=== PATIENT | male | born 1985 | race Caucasian/White ===

== ENCOUNTER 2024-04-16 14:21 | Emergency (ER) | payer OTHER, SELFPAY ==
[2024-04-16 14:31] VITALS: BP 152/93
--- NOTE | 2024-04-16 15:23 | ED.GENMED ---
History of Present Illness
General
Chief Complaint: Musculo-Skeletal Complaint
Time Seen by Provider: 04/16/24 14:53
History of Present Illness
History of Present Illness:
39-year-old male presents to the emergency department for evaluation of nontraumatic right hip pain, intermittent over the past month but worsening in the past 1 to 2 days. Having difficulty moving the leg without assistance. Does have a history
of rheumatoid arthritis, was reportedly supposed to be taking Plaquenil but has not been compliant with this. He did take Celebrex last night without relief. Reports that he was having sex the night before pain began while lying on his right side
but denies any pain during the episode. No fevers or chills. Denies any pattern of morning stiffness. Does also relate bilateral hand stiffness during the same timeframe
Past History
Past History
ED Past Medical History: Hypercholesterolemia
ED Past Surgical History: Orthopedic
Social History
Tobacco: Non-smoker
Drug: None
Review of Systems
Review of Systems
Allergies reviewed?: Yes
All Other Systems: ROS reviewed and negative except as documented in HPI and ROS
Phy Exam
Physical Exam
Physical Exam:
GEN: Well appearing, NAD, WDWN
HEENT: Oral mucosa moist, no scleral icterus
Cardiac: Regular rate
Lung: No respiratory distress, no tachypnea
MSK: No gross deformity or injuries. Range of motion of the right hip secondary to pain, there is no pain with passive hip flexion however hip extension elicits increased pain passively. No palpable crepitus. No focal tenderness to the
trochanteric bursa
Skin: Good color, no pallor or jaundice, no rashes
Neuro: AO x3, moves all extremities freely
Psych: Calm, cooperative
Course
Orders/Labs/Results
Orders:
Orders
04/16/24 14:34
Hip, Right 2-3 Views [CR Hip - RT w/wo Pel 2-3 Vw*] Urgent
Comment:
Reason For Exam: non-traumatic pain
Include a pelvis x-ray?: Yes
04/16/24 15:21
Ketorolac [Toradol] 15 mg IV NOW STA
04/16/24 15:40
CPK [Creatine Phosphokinase] Urgent
CRP [C-Reactive Protein] Urgent
Complete Blood Count/No Diff Urgent
Comprehensive Metabolic Panel Urgent
04/16/24 17:18
Crutches-Treatment ONCE
Dexamethasone Sod Phosphate [Decadron] 10 mg IV NOW STA
HYDROmorphone [Dilaudid] 0.5 mg IV NOW STA
Abnormal Lab Results
04/16/24
15:40
Hct 37.4 L %
(39.0-52.0)
MCV 79.6 L fL
(80.0-94.0)
Glucose 105 H mg/dl
(70-99)
C-Reactive Protein 67.80 H mg/L
(0.0-10.00)
04/16/24 15:40
04/16/24 15:40
Vital Signs
Initial and Last Documented VS:
Initial Vital Signs
Temp Pulse Resp BP Pulse Ox
99.8 F 108 17 152/93 99
04/16/24 14:31 04/16/24 14:31 04/16/24 14:31 04/16/24 14:31 04/16/24 14:31
Last Documented Vital Signs
Temp Pulse Resp BP Pulse Ox
99.8 F 78 18 109/56 100
04/16/24 14:31 04/16/24 17:55 04/16/24 17:55 04/16/24 17:55 04/16/24 17:55
MDM/Problems Addressed
MDM/Problems Addressed:
I suspect his right hip pain is due to osteoarthritis however cannot discount the possibility of associated rheumatoid arthritis flareup. This is particular concerning given the elevated inflammatory markers. Will start the patient on steroid
pulse dose, recommend outpatient orthopedic follow-up
*Critical Care Note
Total Time (30-74mins, 75-104mins- exclusive of procedures): Not Applicable
ED Attending Note
-
Portions of this chart may have been created with voice recognition software.� Occasional wrong word or��sound alike� substitutions may have occurred due to the inherent limitations of voice recognition software.
Discharge Plan
Departure
Patient Disposition: Home (Routine Discharge)
Date of Disposition: 04/16/24
Time of Disposition: 17:39
Patient with high blood pressure during this ER visit?: No
Discharge Problem:
Arthritis of right hip
Instructions: Hip Pain ED
Prescriptions:
New
prednisone 20 mg tablet
40 mg PO DAILY 6 Days Qty: 12 0RF
hydromorphone 2 mg tablet
2 - 4 mg PO Q6H PRN (Reason: Pain) Qty: 12 0RF
No Action
cephalexin 500 mg capsule
500 mg PO BID 5 Days Qty: 10 0RF
Referrals:
Mary Florence DO [Family Provider] -
Cj Mai MD [Active] -
Stand Alone Forms: Return to Work
Activity Restrictions/Additional Instructions:
Follow up with Orthopedics for further evaluation of your hip pain
Interventions
Interventions:
*Risk Screen - Suicide Last Done: 04/16/24 14:33
*General Assessment Last Done: 04/16/24 14:33
*Neglect/Abuse Screening Last Done: 04/16/24 14:33
ED- Fall Risk Assessment Last Done: 04/16/24 17:56
*ED COVID-19 Vaccine History Last Done: 04/16/24 14:33
*Nursing Disposition Last Done: 04/16/24 17:56
ED-Musculoskeletal Assessment Last Done: 04/16/24 15:42
Discharge Date and Time
Discharge Date/Time: 04/16/24 17:56
Print Language: DUTCH
[2024-04-16] MEDS: TORADOL 15 MG IV (15:34)
[2024-04-16 15:57] LABS: Hematocrit 37.4 % (39.0-52.0); Hemoglobin 13.3 g/dL (13.0-18.0); Mean Corp Hgb Conc. 35.6 g/dL (33.0-37.0); Mean Corpuscular Hgb 28.3 pg (27.0-31.0); Mean Corpuscular Volume 79.6 fL (80.0-94.0); Mean Platelet Volume 8.8 fL (7.4-10.4); Platelet Count 156 10^3/uL (130-400); Red Cell Dist. Width 12.5 % (11.5-14.5); White Blood Cell Count 6.3 10^3/uL (4.8-10.8)
[2024-04-16 16:10] LABS: ALT (SGPT) 43 U/L (0-50); AST (SGOT) 26 U/L (17-59); Albumin 4.7 g/dl (3.5-5.0); Alkaline Phosphatase 52 U/L (38-126); Blood Urea Nitrogen 13 mg/dl (9-20); Carbon Dioxide 26 mmol/L (22-30); Chloride 100 mmol/L (98-107); Creatine Phosphokinase 96 U/L (55-170); Glucose 105 mg/dl (70-99); Potassium 3.8 mmol/L (3.5-5.1); Sodium 138 mmol/L (135-145); Total Bilirubin 1.1 mg/dl (0.2-1.3); Total Protein 7.7 g/dl (6.3-8.2); eGFR > 60.00
[2024-04-16] MEDS: DECADRON 10 MG IV (17:28)
[2024-04-16] MEDS: DILAUDID 0.5 MG IV (17:28)
[2024-04-16 17:55] VITALS: BP 109/56
== END 2024-04-16 17:56 | disposition home or self-care (01) ==
LOC: EMR 14:21
PROVIDERS: Physician Assistant; EMERGENCY PHYSICIAN Emergency Medicine; FAMILY PHYSICIAN Family Medicine
DX: M16.11 Unilateral primary osteoarthritis, right hip (principal); M06.9 Rheumatoid arthritis, unspecified; Z91.148 Patient's other noncompliance with medication regimen for other reason
CPT/HCPCS: 99284; 96374; 96375 ×2; 73502; 80053; 82550; 85027; 86140

== ENCOUNTER 2024-11-14 14:05 | Emergency (ER) | payer OTHER, SELFPAY ==
[2024-11-14 14:10] VITALS: BP 124/91
--- NOTE | 2024-11-14 17:08 | ED.SKININJ ---
HPI-Injury
General
Chief Complaint: Skin Problem
Source: patient
Exam Limitations: none
Time Seen by Provider: 11/14/24 16:32
Nursing documentation reviewed up to this point in time: agreed with
History of Present Illness-Injury
Is this injury a work related problem?: No
Is pt an associate of [facility]/[place]?: No
Initial Injury comments:
Patient to ED with an abscess to right axilla. Symptoms started a few days ago, Reports increasing pain redness and swelling. Denies fever/chills. He was seen at today for c/o bronchitis. He was treated for his bronchitis at but then
referred to ED for abscess evaluation.
Past History
Past History
ED Past Medical History: Arrthythmia and Hypercholesterolemia
ED Past Surgical History: Orthopedic
Social History
Tobacco: Non-smoker
Drug: None
Review of Systems
Review of Systems
Allergies reviewed?: Yes
All Other Systems: ROS reviewed and negative except as documented in HPI and ROS
Constitutional: Reports no symptoms
EENT: Reports no symptoms
Respiratory: Reports no symptoms
Cardiac: Reports no symptoms
ABD/GI: Reports no symptoms
Musculoskeletal: Reports no symptoms
Skin: Reports other (Skin abscess to right axilla)
Neurological: Reports no symptoms
Psychiatric: Reports no symptoms
Skin Exam
Abscess
Right axilla:
Description of abscess: fluctuant and well organized
Surrounding skin:: reddened around abscess
Phy Exam
General Physical Exam
General Presentation: well appearing and no apparent distress
General age: appears stated age
General Skin: warm and dry
General Habitus: normal
General Mental: alert
Musculoskeletal Exam
Musculoskeletal Exam: full ROM and neuro vasc intact
Skin Exam
Skin Exam: normal color, warm/dry, no rash and other (skin abscess right axilla. Surrounding erythema, pain)
Psychiatric Exam
Psychiatric Exam: normal mood/affect
Course
Orders/Labs/Results
Orders:
Orders
11/14/24 17:04
Sulfamethox./Trimethoprim Ds [Bactrim Ds 800 mg/160 mg] 1 tablet PO NOW STA
11/14/24 17:05
Wound Culture [Wound/Abscess/Other Culture] Urgent
DIANA Source: Axilla
Specimen Description:
Date Specimen was Collected: 11/14/24
Time Specimen was Collected: 17:06
Vital Signs
Initial and Last Documented VS:
Initial Vital Signs
Temp Pulse Resp BP Pulse Ox
97.8 F 87 18 124/91 98
11/14/24 14:10 11/14/24 14:10 11/14/24 14:10 11/14/24 14:10 11/14/24 14:10
Last Documented Vital Signs
Temp Pulse Resp BP Pulse Ox
97.8 F 87 18 124/91 98
11/14/24 14:10 11/14/24 14:10 11/14/24 14:10 11/14/24 14:10 11/14/24 14:10
Procedures
Incision/Drainage/Joint Aspiration
right axilla:
Anethesia: 1% Lidocaine with Epi
Type of procedure: incise, drain and aspiration
Nature of site: abscess
Description of abscess: greater than 3cm
How much fluid was obtained?: large amount
Fluid description: purulent
Treatment: left open for drainage and antibiotics started
*Pulse Oximetry
SaO2: 98
Oxygen Mode of Delivery: Room air
Patient hypoxic: no
*Critical Care Note
Total Time (30-74mins, 75-104mins- exclusive of procedures): Not Applicable
Update Note
Update Note:
Patient to ED wtih complaint of skin abscess right axilla. Site infiltrated with lidocaine 1% with epi, drained with #11 blade. Wound culture obtained. Placed on bactrim DS pending culture results. Will discharge home, he will follow up wtih
PCP. Given instructions on s/s to return to ED and he is agreeable to plan.
ED Attending Note
-
Portions of this chart may have been created with voice recognition software.� Occasional wrong word or��sound alike� substitutions may have occurred due to the inherent limitations of voice recognition software.
Discharge Plan
Departure
Patient Disposition: Home (Routine Discharge)
Date of Disposition: 11/14/24
Time of Disposition: 17:05
Patient with high blood pressure during this ER visit?: No
Condition: Good
Covid-19: Not Applicable
Discharge Problem:
Abscess of skin
Instructions: Skin Abscess
Prescriptions:
New
sulfamethoxazole-trimethoprim [Bactrim DS] 800-160 mg tablet
1 tab PO BID Qty: 20 0RF
No Action
cephalexin 500 mg capsule
500 mg PO BID 5 Days Qty: 10 0RF
prednisone 20 mg tablet
40 mg PO DAILY 6 Days Qty: 12 0RF
hydromorphone 2 mg tablet
2 - 4 mg PO Q6H PRN (Reason: Pain) Qty: 12 0RF
Activity Restrictions/Additional Instructions:
Return to the emergency department immediately for fever/chills, increasing pain, redness, swelling to abscess site, or for any further concerns.
Interventions
Interventions:
*Risk Screen - Suicide Last Done: 11/14/24 14:10
*General Assessment Last Done: 11/14/24 14:10
*Neglect/Abuse Screening Last Done: 11/14/24 14:10
Discharge Date and Time
Print Language: ANGOLAN
[2024-11-14] MEDS: BACTRIM DS 800 MG/160 MG 1 TABLET PO (17:09)
[2024-11-14 17:12] VITALS: BP 124/79
== END 2024-11-14 17:24 | disposition home or self-care (01) ==
LOC: EMR 14:05
PROVIDERS: EMERGENCY PHYSICIAN Emergency Medicine; FAMILY PHYSICIAN Family Medicine
DX: L02.411 Cutaneous abscess of right axilla (principal); E78.00 Pure hypercholesterolemia, unspecified
CPT/HCPCS: 99283; 10060; 87070; 87205